=== PATIENT | female | born 1965 | race Caucasian/White ===

== ENCOUNTER → 2016-05-05 | Outpatient (CLI) | payer BC, OTHER ==
[~2016-05-05] MED LIST: LEVO25TA5 PO
== END | disposition home or self-care (01) ==
LOC: C.LAB1850 06:59
PROVIDERS: ATTEND Internal Medicine Pulmonary Disease
DX: E03.9 Hypothyroidism, unspecified (principal)

== ENCOUNTER → 2016-07-26 | Outpatient (CLI) | payer BC, OTHER ==
--- NOTE | 2016-07-26 16:45 | MAMMOGRAPHY REPORT ---
BILATERAL DIGITAL SCREENING MAMMOGRAM TOMOSYNTHESIS WITH CAD: 07/26/2016 CLINICAL HISTORY: Routine screening. Patient has no complaints. TECHNIQUE: Breast tomosynthesis in addition to standard 2D mammography was performed. Current study was also evaluated with a Computer Aided Detection (CAD) system. COMPARISON: Comparison is made to exams dated: 07/22/2015 mammogram, 07/19/2014 mammogram, 07/17/2013 mammogram, 08/01/2012 ultrasound biopsy, 07/21/2012 ultrasound, and 07/21/2012 mammogram - [facility]. BREAST COMPOSITION: The tissue of both breasts is heterogeneously dense, which may obscure small ma sses. FINDINGS: There is a partially circumscribed 10 mm mass in the 12:00 middle one third of the right breast, for which additional targeted ultrasound and possible additional mammographic views are lucinda mmended. Another possible 6 mm mass in the middle one third of the right breast, inferior to the po sterior nipple line on the MLO view, thought to project medially on the CC view, for which additiona l targeted ultrasound and possible mammographic views are recommended. There is a stable ribbon shaped metallic biopsy marker in the lateral left breast. No other suspici ous mass, architectural distortion or cluster of microcalcifications is seen. IMPRESSION: ACR BI-RADS CATEGORY 0: INCOMPLETE EVALUATION: NEED ADDITIONAL IMAGING EVALUATION 1. The partially circumscribed 10 mm mass in the 12:00 right breast, and possible additional 6 mm m ass in the inferior right breast need additional imaging evaluation. 2. At the time of additional diagnostic workup in the right breast, a repeat left MLO view with cor responding tomosynthesis images should be performed. The patient will be called to schedule an appointment. Approximately 10% of breast cancers are not detected with mammography. A negative mammographic repor t should not delay biopsy if a clinically suggestive mass is present. Lorrie Garcia M.D. ay/:07/26/2016 16:37:46 Crabbing Machine Operator: Ceci Pearson, [facility] letter sent: Addl Imaging 0 BI-RADS Code: ACR BI-RADS Category 0: Incomplete Evaluation: Need Additional Imaging Evaluation
== END | disposition home or self-care (01) ==
LOC: C.MAMM 07:41
PROVIDERS: ATTEND Obstetrics & Gynecology
DX: Z12.31 Encounter for screening mammogram for malignant neoplasm of breast (principal); N63 Unspecified lump in breast

== ENCOUNTER → 2016-08-03 | Outpatient (CLI) | payer BC, OTHER ==
--- NOTE | 2016-08-04 08:29 | MAMMOGRAPHY REPORT ---
UNILATERAL RIGHT DIGITAL DIAGNOSTIC MAMMOGRAM TOMOSYNTHESIS AND TARGETED RIGHT ULTRASOUND: 08/03/2016 CLINICAL HISTORY: 50-year-old woman called back from screening mammography for possible masses withi n the right breast. History of prior benign left breast biopsy. TECHNIQUE: Left MLO 2-D digital and tomosynthesis images, spot compression tomosynthesis right CC an d ML views were obtained. COMPARISON: Comparison is made to exams dated: 07/26/2016 mammogram, 07/19/2014 mammogram, 07/17/2013 mammogram, 07/21/2012 ultrasound, 07/21/2012 mammogram, and 07/03/2010 ultrasound - [facility]. BREAST COMPOSITION: The tissue of the right breast is heterogeneously dense, which may obscure smal l masses. FINDINGS: The parenchymal pattern of the left breast is similar to prior exams. There is no eviden ce of a new suspicious mass, architectural distortion or suspicious macrocalcifications. A metallic biopsy marker clip is stable. In the right breast, along the posterior nipple line on the spot com pression CC view, there is a round circumscribed 8.8 mm mass. Effacement of the questionable 6 mm m ass in the medial right breast on the CC view. No definite persistent mass in the inferior right br east on the spot compression MLO view. The 8.8 mm mass is thought to project in the 12:00 middle on e third of the breast based on the spot compression MLO views. Further evaluation with ultrasound w as performed. Real-time high-resolution ultrasound was performed in the right breast with particular attention to the 12:00 axis. In the 11:00 breast, 2 cm from the nipple, there is a lobulated predominantly anech oic cyst with internal echogenic material, possibly representing a solid nodular component. The tot al measurements of the cyst are 5.3 x 3.4 x 4.7 mm, and the internal possible solid component measur es approximately 4.5 mm. An oval parallel circumscribed anechoic cyst is identified in the 12:00 ri ght breast, 1 cm from the nipple, measuring 4.8 x 2.4 x 4.2 mm. Another suspected cyst is seen in t he 12:00 periareolar right breast measuring 9.4 x 6.3 x 8.4 mm. This likely correlates with the cir cumscribed mammographic mass. IMPRESSION: ACR BI-RADS CATEGORY 4: SUSPICIOUS, TARGETED ULTRASOUND ACR BI-RADS CATEGORY 4: SUSPICI OUS 1. Ultrasound guided cyst aspiration versus core needle biopsy is recommended for a possible 4.5 mm intracystic mass versus intracystic debris in the 11:00 right breast, 2 cm from the nipple, inciden tally identified on ultrasound. 2. There is only one persistent circumscribed 8.8 mm mass in the 12:00 middle one third of the righ t breast, with probable cystic correlate in the 12:00 periareolar right breast on ultrasound. The o ther possible masses versus nodular asymmetries effaced with additional tomosynthesis images, and no other suspicious sonographic correlates were seen. Pending benign pathology results in the 11:00 r ight breast, would recommend follow-up right diagnostic mammograms and possible repeat ultrasound to ensure stability in 6 months. These results and recommendations were discussed with the patient at the time of the exam. She tent atively scheduled the biopsy prior to leaving our department. Approximately 10% of breast cancers are not detected with mammography. A negative mammographic repor t should not delay biopsy if a clinically suggestive mass is present. Lorrie Garcia M.D. ay/:08/03/2016 14:04:32 Anesthesiology Fellow: Marina TORRES(Mariano)(Antonia), [facility] letter sent: Abnormal 4/5 BI-RADS Code: ACR BI-RADS Category 4: Suspicious Ultrasound BI-RADS: ACR BI-RADS Category 4: Suspic ious
== END | disposition home or self-care (01) ==
LOC: C.MAMM 12:55
PROVIDERS: ATTEND Obstetrics & Gynecology
DX: N63 Unspecified lump in breast (principal)

== ENCOUNTER → 2016-08-11 | Outpatient (CLI) | payer BC, OTHER ==
--- NOTE | 2016-08-11 13:16 | MAMMOGRAPHY REPORT ---
ASPIRATION RIGHT BREAST: 08/11/2016 CLINICAL HISTORY: Right 11:00 breast mass. PATIENT CONSENT: The procedure and risks of ultrasound-guided cyst aspiration versus biopsy were dis cussed in full with the patient. Both oral and written consents were obtained. PROCEDURE DESCRIPTION: With ultrasound guidance, aseptic technique, and 1% lidocaine as a local anes thetic (1% lidocaine to anesthetize the skin and 1% lidocaine with epinephrine to anesthetize the de eper tissues), the mass of concern in the right 11:00 breast was aspirated to completion. A small a mount of pinkish yellow fluid was aspirated and sent to cytology for analysis. Direct pressure was applied to the site immediately post procedure and hemostasis was achieved. As the mass was inciden tally identified on ultrasound with no mammographic correlate noted, postprocedural mammograms were not obtained. The patient tolerated the procedure without complication. She was given wound care i nstructions. COMPARISON: Comparison is made to exams dated: 08/03/2016 mammogram, 07/26/2016 mammogram, 07/22/2015 m ammogram, 07/19/2014 mammogram, and 07/17/2013 mammogram - [facility]. IMPRESSION: ASPIRATION Ultrasound guided aspiration of the right 11:00 breast mass. The fluid was sent to cytology for lexi lysis. The patient will receive cytology results from her referring provider. Pending benign cytol ogy results, recommend follow-up diagnostic mammograms and possible ultrasound of the right breast i n 6 months to reevaluate the aspirated mass as well as the other masses seen during the diagnostic w orkup. Frances Hale M.D. /:08/11/2016 10:18:22 Men'S Golf Coach: Marina TORRES(Mraiano)(Antonia), [facility]
== END | disposition home or self-care (01) ==
LOC: C.MAMM 09:44
PROVIDERS: ATTEND Obstetrics & Gynecology
DX: N63 Unspecified lump in breast (principal)

== ENCOUNTER → 2016-11-01 | Outpatient (CLI) | payer BC, OTHER ==
[2016-11-01 09:46] LABS: ALT/SGPT 24 U/L (12-78); AST/SGOT 15 U/L (15-37); BLOOD UREA NITROGEN 15 mg/dl (7-18); BUN/CREATININE RATIO 21.7 (10-20); CALCIUM 8.8 mg/dl (8.5-10.1); CARBON DIOXIDE 27 mmol/L (21-32); CHLORIDE 108 mmol/L (98-107); CREATININE 0.71 mg/dl (0.60-1.20); GLUCOSE 104 mg/dl (70-99); POTASSIUM 3.9 mmol/L (3.5-5.1); SODIUM 141 mmol/L (136-145)
[2016-11-01 09:57] LABS: ALKALINE PHOSPHATASE 74 U/L (45-117); CHOLESTEROL 177 mg/dl (0-200); CHOLESTEROL/HDL RATIO 3.3; HDL CHOLESTEROL 54 mg/dl; LDL CHOLESTEROL CALCULATED 106 mg/dl; TRIGLYCERIDES 84 mg/dl (0-150); VERY LOW DENSITY LIPOPROT CALC 17 mg/dl
[2016-11-01 10:00] LABS: ESTIMATED AVERAGE GLUCOSE 117 mg/dl; HA1C FLAG Normal (Normal)
== END | disposition home or self-care (01) ==
LOC: C.LAB1850 07:06
PROVIDERS: ATTEND Nurse Practitioner
DX: E03.9 Hypothyroidism, unspecified (principal); R73.01 Impaired fasting glucose

== ENCOUNTER → 2016-12-01 | Outpatient (CLI) | payer BC, OTHER ==
--- NOTE | 2016-12-01 15:06 | DIAGNOSTIC IMAGING REPORT ---
LEFT RIBS UNILATERAL WITH PA CHEST CLINICAL HISTORY: Left lower rib pain. Fall. COMPARISON STUDY: None. FINDINGS: Slightly displaced fracture involving the left anterior seventh rib. No pneumothorax. No pleural effusions. The heart is normal in size. The lungs are clear. IMPRESSION: Slightly displaced left anterior seventh rib fracture. No pneumothorax. Electronically signed by: Leroy Byrd M.D. 12/01/2016 3:04 PM Dictated Date/Time: 12/01/2016 3:02 PM
== END | disposition home or self-care (01) ==
LOC: C.LABBC 14:11
PROVIDERS: ATTEND Physician Assistant Medical
DX: R07.81 Pleurodynia (principal); S22.32XA Fracture of one rib, left side, initial encounter for closed fracture; W19.XXXA Unspecified fall, initial encounter

== ENCOUNTER → 2016-12-03 | Outpatient (CLI) | payer BC, OTHER ==
--- NOTE | 2016-12-03 11:02 | DIAGNOSTIC IMAGING REPORT ---
ABDOMEN LIMITED (US) CLINICAL HISTORY: 51 years-old Female presenting with abdominal pain, fractured ribs after fall last week. TECHNIQUE: Real-time grayscale and limited color Doppler ultrasound imaging of the abdomen limited to the left upper quadrant was performed. COMPARISON: 03/24/2015. FINDINGS: Spleen: Normal echogenicity and echotexture. Normal size, measuring 10.4 cm in maximal sagittal dimension. Normal perfusion of the splenic hilum on color Doppler. Left kidney: Normal appearance and size, measuring 10.8 cm. No hydronephrosis. Normal perfusion on color Doppler. Other: No free fluid. IMPRESSION: Normal left upper quadrant. Electronically signed by: Gallo Chanel M.D. 12/03/2016 11:01 AM Dictated Date/Time: 12/03/2016 10:59 AM
== END | disposition home or self-care (01) ==
LOC: C.ULTR 10:35
PROVIDERS: ATTEND Physician Assistant Medical
DX: R10.12 Left upper quadrant pain (principal)

== ENCOUNTER → 2016-12-10 | Outpatient (CLI) | payer BC, OTHER | END | disposition home or self-care (01) | LOC: C.LAB1850 09:08 | PROVIDERS: ATTEND Nurse Practitioner | DX: E03.9 Hypothyroidism, unspecified (principal) ==

== ENCOUNTER → 2016-12-28 | Day surgery (SDC) | payer BC, OTHER ==
[2016-12-10 13:42] VITALS: Ht 162.6 cm; Wt 90.5 kg
[~2016-12-28] VITALS: Ht 162.6 cm; Wt 90.5 kg
[~2016-12-28] MED LIST changes: +PROPOFOL IV EMULSION 10 MG/ML 20 ML VIAL IV ONE; +SODIUM CHLORIDE 0.9% 500ML 500 ML IV ONE
--- NOTE | 2016-12-28 10:48 | Endo History and Physical ---
History & Physical Date of Service: Dec 28, 2016. Chief Complaint: Screening Referring Physician: Xin Brizuela History of Present Illness 51 yo CF who presents for screening colonoscopy. Past Medical History Thyroid Disease Past Surgical History Hx Cardiac Surgery: No Hx Internal Defibrillator: No Hx Pacemaker: No Hx Abdominal Surgery: Yes (UTERINE ABLATION, SHARMILA, JANETH) Hx of Implantable Prosthesis: No Hx Post-Op Nausea and Vomiting: Yes Hx Cancer Surgery: No Hx Thoracic Surgery: No Hx Orthopedic: Yes (LEFT ORIF ANKLE AND HARDWARE REMOVAL) Hx Urinary Tract Surgery: No Family History None Social History Smoking Status: Former Smoker Hx Substance Use: No Hx Alcohol Use: Yes (OCCASIONALLY) Allergies Coded Allergies: Erythromycin (Unverified Allergy, Intermediate, HIVES, SICK, 12/10/16) Macrolides and Ketolides (Verified Allergy, Intermediate, HIVES, 12/10/16) Current Medications Reported Home Medications Medications Dose Route/Sig Max Daily Dose Days Date Category Levothyroxine Sodium 25 Mcg Tab 1 Tab PO QAM 12/10/16 Reported Vital Signs Weight (Kilograms): 90.45 Height (Feet): 5 Height (Inches): 4 Physical Exam General Appearance: WD/WN, no apparent distress Respiratory/Chest: Auscultation: breath sounds normal Cardiovascular: Heart Auscultation: RRR Abdomen: Bowel Sounds: normal Inspection & Palpation: soft, non-distended, no tenderness, guarding & rebound Assessment and Plan Assessment: 51 yo CF who presents for screening colonoscopy. Plan: Proceed with colonoscopy.
--- NOTE | 2016-12-28 11:56 | Discharge Instructions ---
Endoscopy Patient Instructions Date / Procedure(s) Performed Dec 28, 2016. Colonoscopy Allergy Information Coded Allergies: Erythromycin (Unverified Allergy, Intermediate, HIVES, SICK, 12/10/16) Macrolides and Ketolides (Verified Allergy, Intermediate, HIVES, 12/10/16) Discharge Date / Findings Dec 28, 2016. Diverticulosis Internal hemorrhoids Medication Instructions OK to resume all medications today as prescribed Reported Home Medications Medications Dose Route/Sig Max Daily Dose Days Date Category Levothyroxine Sodium 25 Mcg Tab 1 Tab PO QAM 12/10/16 Reported Provider Instructions Activity Restrictions - No exercising or heavy lifting for 24 hours. - Do not drink alcohol the day of the procedure. - Do not drive a car or operate machinery until the day after the procedure. - Do not make any important decisions or sign important papers in 24 hours after the procedure. Following Day: - Return to full activity which may include returning to work/school. Diet Start your diet with liquids and light foods (jello, soup, juice, toast). Then eat your usual diet if not nauseated. Treatment For Common After Affects For mild abdominal pain, bloating, or excessive gas: - Rest - Eat lightly - Lie on right side Follow-Up Information Follow-up with Xin Brizuela as scheduled Anesthesia Information What You Should Know You have had a procedure that required some medicine to reduce anxiety and discomfort. This treatment is called moderate sedation. After receiving the treatment, you may be sleepy, but you will be able to breathe on your own. The effects of the treatment may last for several hours. Follow these instructions along with Activity/Diet recommendations noted above: * Do NOT do anything where dizziness or clumsiness would be dangerous. * Rest quietly at home today, then you can be up and about tomorrow. * Have a responsible person stay with you the rest of today. * You may have had an I.V. today. If so, you may take the dressing off later today. Recommendations Call your doctor if: * Trouble breathing * Continuous vomiting for more than 24 hours * Temperature above 101 degrees * Severe abdominal pain or bloating * Pain not relieved by pain medicine ordered * There is increased drainage or redness from any incision * A large amount of rectal bleeding greater than 2-3 tablespoons. (If you had a polyp/s removed or have hemorrhoids, a small amount of blood - from the rectum is to be expected.) * You have any unanswered questions or concerns. IN THE EVENT OF A SERIOUS EMERGENCY, GO TO THE NEAREST EMERGENCY ROOM Your discharge instructions were prepared by provider Gordo Cagle. Patient Instructions Signature Page Anaya Pelayo Patient (or Guardian) Signature/Date: I have read and understand the instructions given to me by my caregivers. Caregiver/RN/Doctor Signature/Date: The above-named patient and/or guardian has received patient instructions on this date. + Original Patient Signature Page (only) stays with chart. Please make copy for patient.
--- NOTE | 2016-12-28 11:58 | GI REPORT ---
Procedure Date: 12/28/2016 11:25 AM Procedure: Colonoscopy Indications: Screening for colorectal malignant neoplasm Medicines: Monitored Anesthesia Care Complications: No immediate complications. Estimated Blood Loss: Estimated blood loss: none. Procedure: Pre-Anesthesia Assessment: - Prior to the procedure, a History and Physical was performed, and patient medications and allergies were reviewed. The patient's tolerance of previous anesthesia was also reviewed. The risks and benefits of the procedure and the sedation options and risks were discussed with the patient. All questions were answered, and informed consent was obtained. Prior Anticoagulants: The patient has taken no previous anticoagulant or antiplatelet agents. ASA Grade Assessment: II - A patient with mild systemic disease. After reviewing the risks and benefits, the patient was deemed in satisfactory condition to undergo the procedure. After I obtained informed consent, the scope was passed under direct vision. Throughout the procedure, the patient's blood pressure, pulse, and oxygen saturations were monitored continuously. The On-site loaner was introduced through the anus and advanced to the terminal ileum. The colonoscopy was performed without difficulty. The patient tolerated the procedure well. The quality of the bowel preparation was good. The terminal ileum, ileocecal valve, appendiceal orifice, and rectum were photographed. Findings: Multiple small-mouthed diverticula were found in the sigmoid colon. Non-bleeding internal hemorrhoids were found during retroflexion. The hemorrhoids were small. Impression: - Diverticulosis in the sigmoid colon. - Non-bleeding internal hemorrhoids. - No specimens collected. Recommendation: - Resume previous diet. - Continue present medications. - Repeat colonoscopy in 10 years for surveillance. - Return to primary care physician as previously scheduled. Gordo Cagle, DO 12/28/2016 11:57:49 AM This report has been signed electronically. Note Initiated On: 12/28/2016 11:25 AM I attest to the content of the Intraoperative Record and orders documented therein, exceptions below
[2016-12-28 12:15] VITALS: BP 100/67; PULSE 71; O2SAT 100
--- NOTE | 2016-12-28 12:53 | Anesthesiology Progress Note ---
Anesthesia Post Op Note Date & Time Dec 28, 2016 at 12:53 Vital Signs Pain Intensity: 0 Vital Signs Past 12 Hours Date Time Temp Pulse Resp B/P (MAP) Pulse Ox O2 Delivery O2 Flow Rate FiO2 12/28/16 12:15 71 18 100/67 (78) 100 Room Air 12/28/16 12:00 36.2 71 18 92/53 (66) 98 Room Air 12/28/16 10:47 36.8 81 18 131/45 (73) 100 Room Air Notes Mental Status: alert / awake / arousable, participated in evaluation Pt Amnestic to Procedure: Yes Nausea / Vomiting: adequately controlled Pain: adequately controlled Airway Patency, RR, SpO2: stable & adequate BP & HR: stable & adequate Hydration State: stable & adequate Anesthetic Complications: no major complications apparent
== END | disposition home or self-care (01) ==
LOC: C.GI 10:31
PROVIDERS: ATTEND Internal Medicine
DX: Z12.11 Encounter for screening for malignant neoplasm of colon (principal); K57.30 Diverticulosis of large intestine without perforation or abscess without bleeding; K64.8 Other hemorrhoids; Z90.49 Acquired absence of other specified parts of digestive tract; Z90.710 Acquired absence of both cervix and uterus; Z87.891 Personal history of nicotine dependence; E03.9 Hypothyroidism, unspecified; E66.9 Obesity, unspecified

== ENCOUNTER → 2017-02-16 | Outpatient (CLI) | payer BC, OTHER ==
[~2017-02-16] MED LIST changes: -PROPOFOL IV EMULSION 10 MG/ML 20 ML VIAL IV ONE; -SODIUM CHLORIDE 0.9% 500ML 500 ML IV ONE
--- NOTE | 2017-02-16 15:20 | MAMMOGRAPHY REPORT ---
UNILATERAL RIGHT DIGITAL DIAGNOSTIC MAMMOGRAM TOMOSYNTHESIS WITH CAD AND TARGETED RIGHT ULTRASOUND: 1 04/18/2016 CLINICAL HISTORY: History of ultrasound guided aspiration of a right 11:00 breast mass which yielded benign findings including histiocytes consistent with cyst contents. The patient presents for short interval follow-up. She reports no current complaints. TECHNIQUE: Breast tomosynthesis in addition to standard 2D mammography was performed. Current study was also evaluated with a Computer Aided Detection (CAD) system. Right CC and MLO 2-D and tomosynthe sis images were obtained. COMPARISON: Comparison is made to exams dated: 08/11/2016 aspiration, 08/03/2016 ultrasound, 08/03/2016 m ammogram, 07/26/2016 mammogram, 07/22/2015 mammogram, and 07/19/2014 mammogram - [facility]. BREAST COMPOSITION: The tissue of the right breast is heterogeneously dense, which may obscure small masses. FINDINGS: Again noted is an oval circumscribed benign-appearing mass within the right 12:00 mass mid dle depth measuring approximately 12 mm. The remainder of the right breast is stable compared to prio r exams, without suspicious masses, calcifications, or areas of architectural distortion noted. Targeted ultrasound was performed of the right 12 o'clock breast in the region of the mammographic ma ss. Note that the ultrasound exam is technically difficult due to heterogeneity of the breast parenc hyma, with multiple areas of shadowing of fibroglandular tissue noted which limits evaluation of the posterior structures. Multiple benign anechoic cysts were seen within the right 12:00 breast, includ ing an oval anechoic benign simple cyst measuring 7 mm in the right breast at 12:00, 1 cm from the ni pple. This may correlate with the mammographic mass although this measures slightly smaller than the mammographic mass. An adjacent oval anechoic benign cyst measuring 4 mm is seen within the right 11 :30 to 12:00 breast, 1 cm from the nipple. Another oval anechoic benign simple cyst measuring 2 x 3 m is seen within the right breast at 11:00, 2 cm from the nipple. No suspicious solid masses were ev ident. IMPRESSION: ACR BI-RADS CATEGORY 2: BENIGN, TARGETED ULTRASOUND ACR BI-RADS CATEGORY 2: BENIGN Benign cysts seen within the right 11 to 12:00 breast. There is no mammographic or targeted sonograp hic evidence of malignancy. Return to annual mammogram screening schedule is recommended, due July 04. The patient has been verbally notified of the results. Approximately 10% of breast cancers are not detected with mammography. A negative mammographic report should not delay biopsy if a clinically suggestive mass is present. Frances Hale M.D. ah/:02/16/2017 08:25:05 Investment Accounting Clerk: Bren TORRES(Mariano)(Antonia), [facility] letter sent: Normal 1/2 BI-RADS Code: ACR BI-RADS Category 2: Benign Ultrasound BI-RADS: ACR BI-RADS Category 2: Benign
== END | disposition home or self-care (01) ==
LOC: C.MAMM 07:48
PROVIDERS: ATTEND Obstetrics & Gynecology
DX: N63.10 Unspecified lump in the right breast, unspecified quadrant (principal); N60.11 Diffuse cystic mastopathy of right breast

== ENCOUNTER → 2017-05-02 | Outpatient (CLI) | payer OTHER ==
[2017-05-02 10:15] LABS: ALBUMIN 3.5 gm/dl (3.4-5.0); ALT/SGPT 22 U/L (12-78); AST/SGOT 14 U/L (15-37); BLOOD UREA NITROGEN 11 mg/dl (7-18); CALCIUM 8.9 mg/dl (8.5-10.1); CARBON DIOXIDE 28 mmol/L (21-32); CREATININE 0.83 mg/dl (0.60-1.20); GLUCOSE 109 mg/dl (70-99); POTASSIUM 3.6 mmol/L (3.5-5.1); SODIUM 138 mmol/L (136-145)
[2017-05-02 10:26] LABS: ALKALINE PHOSPHATASE 76 U/L (45-117); TOTAL PROTEIN 7.5 gm/dl (6.4-8.2)
== END | disposition home or self-care (01) ==
LOC: C.LAB1850 07:02
PROVIDERS: ATTEND Nurse Practitioner
DX: R73.01 Impaired fasting glucose (principal); E03.9 Hypothyroidism, unspecified

== ENCOUNTER → 2017-08-01 | Outpatient (CLI) | payer OTHER ==
--- NOTE | 2017-08-01 14:12 | MAMMOGRAPHY REPORT ---
BILATERAL DIGITAL SCREENING MAMMOGRAM TOMOSYNTHESIS WITH CAD: 08/01/2017 CLINICAL HISTORY: Routine screening. Patient has no complaints. An oval circumscribed 14 mm mass in the 12:00 TECHNIQUE: Breast tomosynthesis in addition to standard 2D mammography was performed. Current study was also evaluated with a Computer Aided Detection (CAD) system. COMPARISON: Comparison is made to exams dated: 02/16/2017 ultrasound, 02/16/2017 mammogram, 7 aspiration, 08/03/2016 mammogram, 07/26/2016 mammogram, and 07/22/2015 mammogram - [facility]. BREAST COMPOSITION: The tissue of both breasts is heterogeneously dense, which may obscure small mas ses. FINDINGS: An oval circumscribed 14 mm mass in the 12:00/Retroareolar right breast is slightly larger comparing to prior mammograms but previously documented to represent a simple cyst on ultrasound. Th ere is a stable ribbon-shaped biopsy marker clip in the left lateral breast. No new suspicious mass, architectural distortion or cluster of microcalcifications is seen. IMPRESSION: ACR BI-RADS CATEGORY 1: NEGATIVE There is no mammographic evidence of malignancy. A 1 year screening mammogram is recommended. The pa tient will receive written notification of the results. Approximately 10% of breast cancers are not detected with mammography. A negative mammographic report should not delay biopsy if a clinically suggestive mass is present. Lorrie Garcia M.D. ay/:08/01/2017 13:26:56 Blast Furnace Keeper: Ceci TORRES(Mariano)(Antonia), [facility] letter sent: Normal 1/2 BI-RADS Code: ACR BI-RADS Category 1: Negative
== END | disposition home or self-care (01) ==
LOC: C.MAMM 07:27
PROVIDERS: ATTEND Obstetrics & Gynecology
DX: Z12.31 Encounter for screening mammogram for malignant neoplasm of breast (principal)